=== PATIENT | male | born 2000 | race Caucasian/White ===

== ENCOUNTER 2022-08-12 11:51 | Emergency (ER) | payer SELFPAY ==
[2022-08-12 12:03] VITALS: BP 133/68; PULSE 86; RESP 16; TEMP 37.1; O2SAT 100
--- NOTE | 2022-08-12 12:21 | ED.URI ---
HPI - URI/Sore Throat General Chief Complaint: Upper Respiratory Infection Stated Complaint: Sore Throat Time Seen by Provider: 08/12/22 12:21 History of Present Illness HPI Narrative: 21 y/o male present with a scratchy sore throat and rhinorrhea worsening for 3 days. States his dad was diagnosed yesterday with strep throat. He has attempted throat lozenges with minimal relief. Denies difficulty swallowing secretions, otalgia, SOB, wheezing, CP, fevers, N/V/D. Related Data Home Medications Medication Instructions Recorded Confirmed Adderall 30 mg DAILY 08/12/22 08/12/22 Allergies Allergy/AdvReac Type Severity Reaction Status Date / Time No Known Allergies Allergy Verified 08/12/22 12:01 Review of Systems Review of Systems: CONSTITUTIONAL: Denies body aches EYES: Denies visual changes, redness, or discharge. ENT: Reports rhinorrhea, ST. Denies congestion, and otalgia. CARDIOVASCULAR: Denies chest pain, palpitations, or edema. RESPIRATORY: Denies dyspnea. MUSCULOSKELETAL: Denies back pain, joint pain, or myalgia. NEUROLOGIC: Denies headache [facility] Past Medical History Medical History Healthy male adult Social History Social History Smoking status: Never smoker Exam Narrative: GENERAL: well-appearing, no acute distress. EYES: conjunctivae clear ENT: Mucous membranes moist. TMs pearly robles with normal light reflex bilaterally; no tragal tenderness. Oropharynx erythematous without lesions. Tonsils 1+ and without exudate. No drooling, no hoarseness, no trismus, uvula midline. No tripod positioning, hot potato voice, or soft palate swelling. NECK: Supple. No lymphadenopathy CHEST: Clear to auscultation, breath sounds equal. HEART: Regular rate and rhythm. No murmur heard. SKIN: Warm, dry, no rash. Course Course Emergency Course: Patient is aware of diagnosis, understands and agrees to treatment plan. Anticipatory guidance given. Patient agrees to follow-up as directed and is aware of reasons to seek care at the emergency department. Portions of this record may have been created with voice recognition software Level of Care: Express Care Visit Vital Signs Vital signs: Vital Signs Temperature 98.7 F 08/12/22 12:03 Pulse Rate 86 08/12/22 12:03 Respiratory Rate 16 08/12/22 12:03 Blood Pressure 133/68 08/12/22 12:03 Pulse Oximetry 100 08/12/22 12:03 Oxygen Delivery Room Air 08/12/22 12:03 Temperature 98.7 F 08/12/22 12:03 Pulse Rate 86 08/12/22 12:03 Respiratory Rate 16 08/12/22 12:03 Blood Pressure 133/68 08/12/22 12:03 Pulse Oximetry 100 08/12/22 12:03 Oxygen Delivery Room Air 08/12/22 12:03 MDM - URI/Sore Throat MDM Narrative Medical decision making narrative: Will treat with abx d/t recent exposure and PE. He will forego the strep test at this time. Advised supportive treatments. Patient is appropriate for outpatient treatment and follow-up. Discussed s/s to report to ED. Differential Diagnosis Differential diagnosis: Likely upper respiratory infection, viral infection and pharyngitis Discharge Plan Discharge Clinical Impression: Pharyngitis Patient Disposition: Home, Self-Care Condition: Stable Instructions: Antibiotic Form, Strep Throat (ED) Additional Instructions: - Take the antibiotic as directed. Fever and sore throat typically resolve within one to three days. Most patients can return to work after 24 hours of antibiotic therapy, provided you are fever free and otherwise well. -Eat and drink things that are easy to swallow, like soft foods, cool liquids, tea with honey, or popsicles . -Salt water gargles and/or may use topical anesthetic ( Chloraseptic spray) or lozenges to relieve dryness or throat pain -Alternate Tylenol and ibuprofen as needed for pain and fever as directed. -Frequent hand washing o
== END 2022-08-12 12:36 | disposition home or self-care (01) ==
PROVIDERS: Emergency Provider Nurse Practitioner Family; PCP Emergency Medicine
DX: J02.9 Acute pharyngitis, unspecified (principal)
CPT/HCPCS: 99213; G0463

== ENCOUNTER 2022-09-18 09:13 | Emergency (ER) | payer OTHER, SELFPAY ==
[2022-09-18 09:21] VITALS: BP 130/76; PULSE 90; RESP 18; TEMP 36.6; O2SAT 99
--- NOTE | 2022-09-18 09:32 | ED.EYEPROB ---
HPI - Eye Problem General Chief complaint: Eye Problems Stated complaint: poss pink eye Time Seen by Provider: 09/18/22 10:10 Source: patient and RN notes reviewed Mode of arrival: ambulatory Limitations: no limitations History of Present Illness HPI Narrative: 21-year-old male presents concern for 2 day history of right eye irritation, redness, discharge, matting. Reports he woke up this morning with green crusty drainage on Wednesday. He reports he has had sinus symptoms for about 5 days and he has been taking [id number] sinus medication. He denies sinus pain or pressure. chief complaint: eye redness Related Data Home Medications Medication Instructions Recorded Confirmed dextroamphetamine-amphetamine 20 20 mg PO DAILY 09/18/22 09/18/22 mg tablet Allergies Allergy/AdvReac Type Severity Reaction Status Date / Time No Known Allergies Allergy Verified 09/18/22 09:35 Review of Systems Review of Systems: CONSTITUTIONAL: Denies malaise, chills, sweats, or fever. EYES: Denies visual changes. Reports right eye redness, irritation, discharge. ENT: Denies rhinorrhea, congestion, sinus pain, otalgia or sore throat. SKIN: Denies rash or itching. NEUROLOGIC: Denies numbness, weakness, or headache. PSYCHIATRIC: Denies anxiety or depression. All systems reviewed & are unremarkable except as noted in HPI and below PMFSH Past Medical History Medical History Healthy male adult Social History Social History Smoking status: Never smoker Comments At time of signature, agree with nursing past medical, surgical, social and family history. There is no relevant family history pertinent to the presenting complaint Exam Narrative: GENERAL: Well-appearing, well-nourished, and in no acute distress. HEAD: Normocephalic, atraumatic. EYES: PERRLA, sclera clear, and EOMI. No nystagmus. Right eye Schooler and conjunctivae injected with green discharge. Upper and lower eyelid unremarkable, no periorbital edema noted ENT: Nares clear, turbinates pink, no rhinorrhea or epistaxis. Mucous membranes moist. TM pearly robles with sharp light reflex bilaterally; no tragal tenderness. NECK: Supple. CHEST: No respiratory distress. Speaks in full sentences. HEART: Regular rate and rhythm. SKIN: Warm, dry, no visible rash. NEURO: Alert and oriented x3. PSYCH: Normal mood and affect Course Course Emergency Course: Patient is aware of diagnosis, understands and agrees to treatment plan. Anticipatory guidance given. Patient agrees to follow-up as directed and is aware of reasons to seek care at the emergency department. Portions of this record may have been created with voice recognition software Level of Care: Express Care Visit Vital Signs Vital signs: Vital Signs Temperature 98 F 09/18/22 09:21 Pulse Rate 90 09/18/22 09:21 Respiratory Rate 18 09/18/22 09:21 Blood Pressure 130/76 09/18/22 09:21 Pulse Oximetry 99 09/18/22 09:21 Oxygen Delivery Room Air 09/18/22 09:21 Temperature 98 F 09/18/22 09:21 Pulse Rate 90 09/18/22 09:21 Respiratory Rate 18 09/18/22 09:21 Blood Pressure 130/76 09/18/22 09:21 Pulse Oximetry 99 09/18/22 09:21 Oxygen Delivery Room Air 09/18/22 09:21 Reviewed. MDM - Eye Problem MDM Narrative Medical decision making narrative: Consideration of the following conditions may be warranted for the presenting problem, they are not final diagnoses: Bacterial conjunctivitis, allergic conjunctivitis, viral conjunctivitis, foreign body, blepharitis, chalazion, hordeolum, corneal abrasion, preseptal cellulitis, orbital cellulitis. No evidence of proptosis, ophthalmoplegia, vision loss, pain with eye movement. Exam findings show no acute concerns or changes; patient is non-toxic appearing and is in no distress. Patient is appropriate for outpatient treatment an
== END 2022-09-18 10:10 | disposition home or self-care (01) ==
PROVIDERS: Emergency Provider Nurse Practitioner; PCP Emergency Medicine
DX: H10.9 Unspecified conjunctivitis (principal)
CPT/HCPCS: 99213; G0463

== ENCOUNTER 2022-09-20 11:46 | Emergency (ER) | payer OTHER, SELFPAY ==
[2022-09-20 11:53] VITALS: BP 141/62; PULSE 91; RESP 16; TEMP 36.9; O2SAT 99
--- NOTE | 2022-09-20 13:14 | ED.URI ---
HPI - URI/Sore Throat General Chief Complaint: Upper Respiratory Infection Stated Complaint: Sore Throat Time Seen by Provider: 09/20/22 13:15 Source: patient, RN notes reviewed and old records reviewed Mode of arrival: ambulatory Limitations: no limitations History of Present Illness HPI Narrative: 21 year old male who presents to [facility] care with complaints of cough, stuffy nose,no fevers and sore throat for the past 2 days. Patient denies any shortness of breath or any body aches, he rates his pain 6/10 and reports increase with swallowing. Ptient has not taken any OTC medication for his symptoms. MD elicited complaint: fever, sore throat, rhinorrhea and nasal congestion Pertinent past history: other (strep) Onset (ago): day(s) (2) Pain scale (0-10): 6 Treatments prior to arrival: none Related Data Home Medications Medication Instructions Recorded Confirmed dextroamphetamine-amphetamine 20 20 mg PO DAILY 09/18/22 09/18/22 mg tablet Allergies Allergy/AdvReac Type Severity Reaction Status Date / Time No Known Allergies Allergy Verified 09/18/22 09:35 Review of Systems Review of Systems: CONSTITUTIONAL:Reports malaise, chills, sweats, or fever. EYES: Denies visual changes, redness, or discharge. ENT: Reports rhinorrhea, congestion, sinus pain,no otalgia positive for sore throat. CARDIOVASCULAR: Denies chest pain, palpitations, or edema. RESPIRATORY: Reports cough.? Denies dyspnea. GASTROINTESTINAL: Denies abdominal pain, nausea, vomiting, diarrhea SKIN: Denies rash or itching. MUSCULOSKELETAL: Denies myalgia. NEUROLOGIC: Denies headache. All systems reviewed & are unremarkable except as noted in HPI and below PMFSH Past Medical History Medical History Healthy male adult Social History Social History Smoking status: Never smoker Comments At time of signature, agree with nursing past medical, surgical, social and family history. There is no relevant family history pertinent to the presenting complaint Exam Narrative: GENERAL: Well-appearing, well-nourished, and in no acute distress. HEAD: Normocephalic EYES: PERRLA, conjunctivae clear ENT: Nares clear, turbinates edematous and erythematous, clear discharge. Mucous membranes moist. TM pearly robles with dull light reflex bilaterally; no tragal tenderness. Oropharynx erythematous without lesions. Tonsils red and enlarged and with painful swallowing, no drooling, no hoarseness, no trismus, uvula midline.post nasal drainage NECK: Supple. lymphadenopathy CHEST: Clear to auscultation, breath sounds equal. No wheezing, rhonchi, rales, or stridor. No respiratory distress, speaks in full sentences.no acute cough SAO2 99% on room air HEART: Regular rate and rhythm. No murmur heard. SKIN: Warm, dry, no rash. NEURO: Alert and oriented x3. PSYCH: Normal mood and affect Course Course Emergency Course: Patient is aware of diagnosis, understands and agrees to treatment plan.? Anticipatory guidance given.? Patient agrees to follow-up as directed and is aware of reasons to seek care at the emergency department. Portions of this record may have been created with voice recognition software Level of Care: Express Care Visit Vital Signs Vital signs: Vital Signs Temperature 36.9 C 09/20/22 11:53 Pulse Rate 91 09/20/22 11:53 Respiratory Rate 16 09/20/22 11:53 Blood Pressure 141/62 H 09/20/22 11:53 Pulse Oximetry 99 09/20/22 11:53 Oxygen Delivery Room Air 09/20/22 11:53 Temperature 36.9 C 09/20/22 11:53 Pulse Rate 91 09/20/22 11:53 Respiratory Rate 16 09/20/22 11:53 Blood Pressure 141/62 H 09/20/22 11:53 Pulse Oximetry 99 09/20/22 11:53 Oxygen Delivery Room Air 09/20/22 11:53 Reviewed MDM - URI/Sore Throat MDM Narrative Medical decision making narrative: Differential diagnosi
== END 2022-09-20 13:35 | disposition home or self-care (01) ==
PROVIDERS: Emergency Provider Registered Nurse; PCP Emergency Medicine
DX: J02.0 Streptococcal pharyngitis (principal); Z20.822 Contact with and (suspected) exposure to COVID-19
CPT/HCPCS: 87426; 87804; 87880; 99213; C9803; G0463

== ENCOUNTER 2023-06-05 20:44 | Emergency (ER) | payer OTHER, SELFPAY ==
[2023-06-05] VITALS (10 sets, daily range): BP systolic 144; BP diastolic 82; PULSE 82–104; RESP 10–22; TEMP 36.9; O2SAT 98–100
--- NOTE | ~2023-06-05 | XR_ITS ---
EXAMINATION: XR chest 2V DATE: 06/05/2023 21:03 INDICATION: Chest tightness TECHNIQUE: PA and lateral views of the chest were obtained. COMPARISON: None FINDINGS: The lungs are clear with no focal airspace opacities, pulmonary edema, pleural effusion or pneumothor ax. The cardiomediastinal silhouette is normal. Visualized bones and soft tissues are unremarkable. IMPRESSION: 1. Normal chest radiograph. Reviewed, dictated and finalized at location A. IMPRESSION: 1. Normal chest radiograph.
--- NOTE | 2023-06-05 20:46 | ECG_ITS ---
Measurements Intervals [place] Rate: 85 P: 40 AK: 150 QRS: 16 QRSD: 109 T: 14 QT: 340 QTc: 404 Interpretive Statements SINUS RHYTHM WITH MARKED SINUS ARRHYTHMIA INCOMPLETE RIGHT BUNDLE BRANCH BLOCK [90+ ms QRS DURATION, TERMINAL R IN V1/V2, 40+ ms S IN I/aVL/V4/V5/V6] MINIMAL VOLTAGE CRITERIA FOR LVH, CONSIDER NORMAL VARIANT [MEETS CRITERIA IN ONE OF: R(aVL), S(V1), R(V5), R(V5/V6)+S(V1)] NO PREVIOUS ECG AVAILABLE FOR COMPARISON Electronically Signed On 06-06-2023 11:13:33 CDT by Delphine Oreilly MD
[2023-06-05 20:59] LABS: Basophils Percent Auto 0.4 % (0.2-1.2); Eosinophils Absolute Auto 0.1 K/mm3 (0-0.3); Eosinophils Percent Auto 0.9 % (0-4.4); Hematocrit 44.8 % (42.0-52.0); Immature Granulocyte Absolute 0.03 K/mm3 (0.00-0.031); Immature Granulocyte Percent A 0.3 % (0-0.5); Lymphocytes Absolute Auto 2.82 K/mm3 (0.9-3.2); Lymphocytes Percent Auto 26.8 % (18.3-44.2); Mean Corpuscular HGB Conc 33.5 g/dl (32-36); Mean Corpuscular Hemoglobin 29.8 pg (26-34); Mean Corpuscular Volume 89.1 fl (80-100); Mean Platelet Volume 8.8 fl (7.4-10.4); Monocytes Absolute Auto 0.7 K/mm3 (0.1-0.6); Monocytes Percent Auto 6.4 % (2.6-8.5); Neutrophils Absolute Auto 6.9 K/mm3 (1.3-6.7); Neutrophils Percent Auto 65.2 % (45.5-73.1); Platelet Count Result 323 k/mm3 (150-375); Red Blood Count 5.03 M/mm3 (4.6-6.20); Red Cell Distribution Width 12.1 % (11.5-14.5); White Blood Count 10.5 K/mm3 (4.5-10.0)
--- NOTE | 2023-06-05 21:00 | ED.GENADULT ---
HPI - General Adult General Chief complaint: Chest Pain Stated complaint: Chest Tighness Time Seen by Provider: 06/05/23 20:48 History of Present Illness HPI narrative: Patient with 2-year-old gentleman who presents the emergency department with chief complaint of chest discomfort. The patient reports that today he started having a feeling in his chest that was a tightness heaviness. Patient reports he did a little bit of discomfort in his left shoulder and left leg patient reports no diaphoresis reports that he was not doing any significant activity during this episode reports that he has no prior history of cardiac disease reports no family history for cardiac disease at a young age patient reports that has had no injury reports no fever denies cough Related Data Home Medications Medication Instructions Recorded Confirmed dextroamphetamine-amphetamine 20 20 mg PO DAILY 09/18/22 09/18/22 mg tablet Allergies Allergy/AdvReac Type Severity Reaction Status Date / Time No Known Allergies Allergy Verified 09/18/22 09:35 Review of Systems Review of Systems: A 10 system review of systems was completed on the patient and is negative except for what is stated in the HPI. Nursing and ancillary documentation was reviewed. [facility] Past Medical History Medical History Healthy male adult Social History Social History Smoking status: Never smoker Exam Narrative: GENERAL: Well-appearing, well-nourished, and in no acute distress. HEAD: Normocephalic, atraumatic. EYES: PERRLA and EOMI. ENT: Nares clear, no rhinorrhea or epistaxis. Mucous membranes moist. NECK: Supple. CHEST: Clear to auscultation. No respiratory distress. HEART: Regular rate and rhythm. No murmur heard. Normal peripheral pulses. ABDOMEN: Soft, nontender, nondistended, normal active bowel sounds. EXTREMITIES: Normal range of motion. No edema. SKIN: Warm, dry, no rash. NEURO: No focal deficits. Alert and oriented x3. PSYCH: Normal mood and affect. Course Vital Signs Vital signs: Vital Signs Temperature 36.9 C 06/05/23 20:47 Pulse Rate 91 06/05/23 20:47 Respiratory Rate 16 06/05/23 20:47 Pulse Oximetry 100 06/05/23 20:47 Oxygen Delivery Room Air 06/05/23 20:47 Temperature 36.9 C 06/05/23 20:47 Pulse Rate 95 06/05/23 20:55 Respiratory Rate 10 L 06/05/23 20:53 Blood Pressure 144/82 H 06/05/23 20:53 Pulse Oximetry 100 06/05/23 20:49 Oxygen Delivery Room Air 06/05/23 20:47 Medical Decision Making MDM Narrative Medical decision making narrative: Differential diagnosis includes ACS, atypical chest pain, anxiety, reflux, pancreatitis EKG showed no ST elevation or ST depression Patient no focal infiltrate or widened mediastinum or acute abnormality. Laboratory studies showed a white count of 10.5 electrolytes are within normal limits lipase was 43 liver enzymes were otherwise normal renal function was normal with creatinine 0.8 troponin is less than 0.012 Vital Signs Vital Signs: Vital Signs Temperature 36.9 C 06/05/23 20:47 Pulse Rate 91 06/05/23 20:47 Respiratory Rate 16 06/05/23 20:47 Pulse Oximetry 100 06/05/23 20:47 Oxygen Delivery Room Air 06/05/23 20:47 Temperature 36.9 C 06/05/23 20:47 Pulse Rate 95 06/05/23 20:55 Respiratory Rate 10 L 06/05/23 20:53 Blood Pressure 144/82 H 06/05/23 20:53 Pulse Oximetry 100 06/05/23 20:49 Oxygen Delivery Room Air 06/05/23 20:47 Lab Data 06/05/23 20:53 06/05/23 20:53 Labs: Lab Results 06/05/23 Range/Units 20:53 WBC 10.5 H (4.5-10.0) K/mm3 RBC 5.03 (4.6-6.20) M/mm3 Hgb 15.0 (14.0-18.0) g/dL Hct 44.8 (42.0-52.0) % MCV 89.1 (80-100) fl MCH 29.8 (26-34) pg MCHC 33.5 (32-36) g/dl RDW 12.1 (11.5-14.5) % Plt Count
[2023-06-05 21:07] LABS: Alanine Aminotransferase 33 U/L (6-50); Albumin Level 4.8 g/dL (3.5-5.1); Alkaline Phosphatase 58 U/L (38-126); Anion Gap 7 mmol/L (8-16); Aspartate Amino Transferase 34 U/L (17-59); Bilirubin,Total 0.5 mg/dL (0.2-1.3); Blood Urea Nitrogen 8 mg/dL (9-20); Calcium 9.2 mg/dL (8.4-10.2); Carbon Dioxide 29 mmol/L (22-30); Chloride 104 mmol/L (98-107); Estimated CRCL calculation 161 ml/min; Estimated Glomerular Filt Rate > 60; Glucose 99 mg/dL (65-110); Lipase 43 U/L (23-300); Potassium 3.7 mmol/L (3.4-5.0); Sodium 140 mmol/L (137-145)
[2023-06-05 21:10] LABS: Partial Thromboplastin Time 27.9 SECONDS (22.3-36.8); Prothrombin Time 13.6 Seconds (11.1-14.7)
[2023-06-05 21:18] LABS: Troponin I < 0.012 ng/mL (0.000-0.034)
== END 2023-06-05 22:16 | disposition home or self-care (01) ==
PROVIDERS: Emergency Provider Emergency Medicine; PCP Emergency Medicine
DX: R07.89 Other chest pain (principal)
CPT/HCPCS: 36415; 71046; 80053; 83690; 84484; 85025; 85610; 85730; 93005; 99284

== ENCOUNTER 2023-09-16 08:39 | Emergency (ER) | payer OTHER, SELFPAY ==
[2023-09-16 08:44] VITALS: BP 143/80; PULSE 99; RESP 20; TEMP 36.9; O2SAT 98
--- NOTE | 2023-09-16 08:44 | ED.NAVMDI ---
HPI - Nausea/Vomiting/Diarrhea General Chief complaint: Nausea/Vomiting/Diarrhea Stated complaint: stomach pain/diarrhea Source: patient and RN notes reviewed Mode of arrival: ambulatory Limitations: no limitations History of Present Illness HPI Narrative: Patient is a 22-year-old male who presents to the [facility] with complaints upper abdominal cramping that began on Wednesday. Patient describes the pain as intermittent and dull. States that pain occasionally becomes sharp. Patient states that he woke up this morning and noticed that his stool was liquid and black. He reports associated nausea without emesis. Denies recent fevers. Denies history of GI problems. Related Data Home Medications Medication Instructions Recorded Confirmed dextroamphetamine-amphetamine 20 20 mg PO DAILY 09/16/23 09/16/23 mg tablet (Adderall) Allergies Allergy/AdvReac Type Severity Reaction Status Date / Time No Known Allergies Allergy Verified 09/16/23 09:00 Review of Systems Review of Systems: CONSTITUTIONAL: Denies fever, chills, or sweats. EYES: Denies visual changes, redness, or discharge. ENT: Denies otalgia and sore throat CARDIOVASCULAR: Denies chest pain, palpitations, or edema. RESPIRATORY: Denies cough or dyspnea. GASTROINTESTINAL: Denies vomiting. Reports upper abdominal pain, nausea, diarrhea. Reports black stools. GENITOURINARY: Denies dysuria or hematuria. SKIN: Denies rash or itching. MUSCULOSKELETAL: Denies back pain, joint pain, or myalgia. NEUROLOGIC: Denies headache, numbness, or weakness. Pertinent positives per HPI. [facility] Past Medical History Medical History Healthy male adult Social History Social History Smoking status: Never smoker Comments At the time of my signature, I reviewed and agree with the nursing past medical, surgical, social, and family history. There is no relevant family history pertinent to the patient complaint. Exam Narrative: GENERAL: This is a well-nourished, well-developed patient, in no apparent distress. HEAD: normocephalic, atraumatic. EYES: Sclera clear/white. Vision is grossly intact. EARS: External ears normal. Hearing grossly intact. NOSE: External nose normal with no obvious nasal discharge, nares without redness, no rhinorrhea. THROAT: Mucous membranes moist, posterior pharynx clear. NECK: Neck supple, non-tender without lymphadenopathy, masses or thyromegaly. CARDIOVASCULAR: Regular rate and rhythm without murmurs, gallops, or rubs. RESPIRATORY: Clear to auscultation. Breath sounds equal bilaterally. No wheezes, rales, or rhonchi. GASTROINTESTINAL: Epigastric tenderness. Bowel sounds are active. No hepato-splenomegaly, or palpable masses. SKIN: warm, intact with no suspicious lesions or rash, good texture and turgor. NEURO: awake, alert, and oriented to person, place and time. There were no obvious focal neurologic abnormalities. Course Course Level of Care: Express Care Visit Vital Signs Vital signs: Vital Signs Temperature 98.5 F 09/16/23 08:44 Pulse Rate 99 09/16/23 08:44 Respiratory Rate 20 09/16/23 08:44 Blood Pressure 143/80 H 09/16/23 08:44 Pulse Oximetry 98 09/16/23 08:44 Oxygen Delivery Room Air 09/16/23 08:44 Temperature 98.5 F 09/16/23 08:44 Pulse Rate 99 09/16/23 08:44 Respiratory Rate 20 09/16/23 08:44 Blood Pressure 143/80 H 09/16/23 08:44 Pulse Oximetry 98 09/16/23 08:44 Oxygen Delivery Room Air 09/16/23 08:44 Reviewed Transfer Transfered to: [place] Transportation: Other ( Private vehicle) Transfer rationale: abdominal pain with black stools Accepting physician: Dr. Stack MDM - Nausea/Vomiting/Diarrhea [facility] Narrative Medical decision making narrative: Patient was sent to [facility] for further evaluation and treatment as he is experiencing abdominal
== END 2023-09-16 09:05 | disposition short-term general hospital (02) ==
PROVIDERS: Emergency Provider Nurse Practitioner; PCP Emergency Medicine
DX: R10.13 Epigastric pain (principal); K92.1 Melena; Z79.899 Other long term (current) drug therapy
CPT/HCPCS: 99212; G0463

== ENCOUNTER 2023-09-16 09:56 | Emergency (ER) | payer OTHER, SELFPAY ==
--- NOTE | ~2023-09-16 | CT_ITS ---
EXAMINATION: CT abdomen pelvis w con DATE: 09/16/2023 13:23 INDICATION: Upper abdominal pain TECHNIQUE: Computed tomography (CT) of the abdomen and pelvis was performed with 100 cc Omnipaque 350 intravenous contrast. The dose-length product was 1089.89 mGy-cm. Automated exposure control and ite rative reconstruction technique were employed. COMPARISON: No prior studies for comparison. FINDINGS: Lung bases are unremarkable. Heart size normal. No significant pleural or pericardial effus ion. The liver, spleen, pancreas, adrenal glands and kidneys are unremarkable. Gallbladder is present . There is mild mucosal thickening of the sigmoid colon with subtle hyperemia. No obstruction. The liver, spleen, pancreas, adrenal glands and kidneys are unremarkable. There is mild segmental thi ckening of the distal small bowel, also without obstruction. There is mild ileocolic and retroperiton eal lymphadenopathy. IMPRESSION: 1. Segmental thickening of the distal small bowel and the sigmoid colon/rectum, suspicious for infect ious or inflammatory enterocolitis. Consider Crohn's disease. 2: Mild ileocolic and retroperitoneal lymphadenopathy, likely reactive. Reviewed, dictated and finalized at location [facility] IMPRESSION: 1. Segmental thickening of the distal small bowel and the sigmoid colon/rectum, suspicious for infectious or inflammatory enterocolitis. Consider Crohn's dise ase. 2: Mild ileocolic and retroperitoneal lymphadenopathy, likely reactive.
[2023-09-16 10:41] VITALS: BP 147/76; PULSE 74; RESP 16; TEMP 36.8; O2SAT 100
--- NOTE | 2023-09-16 12:19 | ED.GENADULT ---
HPI - General Adult General Chief complaint: GI Bleed Stated complaint: Black stool, stomach cramping Time Seen by Provider: 09/16/23 12:18 Source: patient Mode of arrival: ambulatory Limitations: no limitations History of Present Illness HPI narrative: 22 years old white male came to the hospital by private car complaining of upper abdominal cramps started 2 days ago, intermittent, denies aggravating or relieving factor associated with nausea and vomited twice 2 days ago. He denies any fever, chills, diarrhea, no history of abdominal surgery, lives with asymptomatic family. He smokes cigarettes and marijuana drinks occasionally history of attention deficit syndrome on Adderall Related Data Home Medications Medication Instructions Recorded Confirmed dextroamphetamine-amphetamine 20 20 mg PO DAILY 09/16/23 09/16/23 mg tablet (Adderall) Allergies Allergy/AdvReac Type Severity Reaction Status Date / Time No Known Allergies Allergy Verified 09/16/23 09:00 Review of Systems Review of Systems: All systems reviewed & are unremarkable except as noted in HPI and below PMFSH Past Medical History Medical History Healthy male adult Social History Social History Smoking status: Never smoker Exam Narrative: General appearance: Well-developed, well-nourished Skin: Normal color Head: Normocephalic, nontraumatic Eyes: Clear conjunctiva ENT: Oropharynx normal, ears normal, nose normal Neck: Supple, nontender Chest and respiratory: Airway patent, no respiratory distress, no accessory muscle use Heart: Regular rate/rhythm Abdomen: Soft, epigastric tenderness, no organomegaly, quiet bowel sounds Vascular: Normal peripheral pulses, normal capillary refill. Musculoskeletal: Normal range of motion, nontender back Neurologic: Alert and oriented ?3, [employer] is normal as tested, no gross motor deficit Course Vital Signs Vital signs: Vital Signs Temperature 36.8 C 09/16/23 10:41 Pulse Rate 74 09/16/23 10:41 Respiratory Rate 16 09/16/23 10:41 Blood Pressure 147/76 H 09/16/23 10:41 Pulse Oximetry 100 09/16/23 10:41 Oxygen Delivery Room Air 09/16/23 10:41 Temperature 36.8 C 09/16/23 10:41 Pulse Rate 74 09/16/23 10:41 Respiratory Rate 16 09/16/23 10:41 Blood Pressure 147/76 H 09/16/23 10:41 Pulse Oximetry 100 09/16/23 10:41 Oxygen Delivery Room Air 09/16/23 10:41 Medical Decision Making MDM Narrative Medical decision making narrative: patient came from home with the above symptoms Vital signs on arrival within normal limit, physical examination showed mild tenderness at the epigastric area, differential diagnosis include pancreatitis, gastroenteritis, stress related symptoms he has, constipation, colitis Blood workup today showed normal CBC, CMP, lipase, urine analysis, in CT scan of the abdomen and pelvis with IV contrast showed possible Crohn's disease, enterocolitis. Patient be discharged on Levaquin, Flagyl, Zofran as needed discussed with Dr. Ceja. Patient was advised to contact Dr. Viramontes within 5-7 days for follow-up In the ED patient received 1 L of normal saline, 4 mg of morphine, 4 mg of Zofran with remarkable improvement. the pt was discharged to home.the pt,s condition upon discharge was fair,education was provided to the pt in reference to the final impression,discharge study results,treatment,prognosis and need for follow up . Differential Diagnosis Differential Diagnosis: as above Medical Records Medical records reviewed: Yes I reviewed the external patient's medi
[2023-09-16 12:30] VITALS: BP 126/70; PULSE 80; RESP 16; TEMP 36.7; O2SAT 100
[2023-09-16] MEDS: SODIUM CHLORIDE 0.9% IV 1,000 ML 999 ML IV CONT (12:33)
[2023-09-16] MEDS: MORPHINE SULFATE (*CRX) 4 MG/ML INJ IV PUSH (12:34)
[2023-09-16] MEDS: ONDANSETRON INJ 4 MG/2 ML VIAL IV PUSH (12:34)
[2023-09-16 12:44] LABS: Basophils Percent Auto 0.3 % (0.2-1.2); Eosinophils Absolute Auto 0.1 K/mm3 (0-0.3); Eosinophils Percent Auto 0.8 % (0-4.4); Hematocrit 44.5 % (42.0-52.0); Immature Granulocyte Absolute 0.02 K/mm3 (0.00-0.031); Immature Granulocyte Percent A 0.3 % (0-0.5); Lymphocytes Absolute Auto 1.16 K/mm3 (0.9-3.2); Lymphocytes Percent Auto 16.2 % (18.3-44.2); Mean Corpuscular HGB Conc 33.7 g/dl (32-36); Mean Corpuscular Hemoglobin 29.2 pg (26-34); Mean Corpuscular Volume 86.7 fl (80-100); Mean Platelet Volume 8.4 fl (7.4-10.4); Monocytes Absolute Auto 0.6 K/mm3 (0.1-0.6); Monocytes Percent Auto 8.7 % (2.6-8.5); Neutrophils Absolute Auto 5.3 K/mm3 (1.3-6.7); Neutrophils Percent Auto 73.7 % (45.5-73.1); Platelet Count Result 278 k/mm3 (150-375); Red Blood Count 5.13 M/mm3 (4.6-6.20); Red Cell Distribution Width 12.4 % (11.5-14.5); White Blood Count 7.2 K/mm3 (4.5-10.0)
[2023-09-16 12:47] LABS: Appearance Urine Clear (Clear); Bilirubin Urine Negative (Negative); Blood Urine Negative (Negative); Color Urine Yellow (Yellow); Glucose Urine UA Negative (Negative); Ketones Urine Negative (Negative); Leukocyte Esterase Ur Negative LEU/UL (Negative); Nitrate Urine Negative (Negative); Protein Urine Negative (Negative); Specific Grav Ur 1.023 (1.001-1.035); Urobilinogen Urine 0.2 mg/dL (<2.0)
[2023-09-16 12:48] LABS: Add Urine Microscopic? NO
[2023-09-16 12:54] LABS: Prothrombin Time 13.7 Seconds (11.1-14.7)
[2023-09-16 12:55] LABS: Alanine Aminotransferase 37 U/L (6-50); Albumin Level 4.9 g/dL (3.5-5.1); Alkaline Phosphatase 64 U/L (38-126); Anion Gap 11 mmol/L (8-16); Aspartate Amino Transferase 32 U/L (17-59); Bilirubin,Total 0.7 mg/dL (0.2-1.3); Blood Urea Nitrogen 13 mg/dL (9-20); Calcium 9.3 mg/dL (8.4-10.2); Carbon Dioxide 25 mmol/L (22-30); Chloride 102 mmol/L (98-107); Estimated CRCL calculation 179 ml/min; Estimated Glomerular Filt Rate > 60; Glucose 91 mg/dL (65-110); Lipase 32 U/L (23-300); Partial Thromboplastin Time 31.2 SECONDS (22.3-36.8); Potassium 4.1 mmol/L (3.4-5.0); Sodium 138 mmol/L (137-145)
[2023-09-16 13:21] LABS: SARS-CoV-2 RNA PCR Negative (Negative)
[2023-09-16 13:30] VITALS: BP 120/74; PULSE 78; RESP 16; O2SAT 98
[2023-09-16 14:30] VITALS: BP 118/68; PULSE 74; RESP 16; TEMP 36.7; O2SAT 99
== END 2023-09-16 15:30 | disposition home or self-care (01) ==
PROVIDERS: Emergency Provider Emergency Medicine; PCP Emergency Medicine
DX: K52.9 Noninfective gastroenteritis and colitis, unspecified (principal); Z20.822 Contact with and (suspected) exposure to COVID-19; F98.8 Other specified behavioral and emotional disorders with onset usually occurring in childhood and adolescence; F17.210 Nicotine dependence, cigarettes, uncomplicated
CPT/HCPCS: 36415; 74177; 80053; 81003; 83690; 85025; 85610; 85730; 86850; 86900; 86901; 87635; 96361; 96374; 96375; 99284; J2270; J2405; J7030; Q9967

== ENCOUNTER 2023-10-28 00:47 | Day surgery (SDC) | payer OTHER, SELFPAY ==
[2023-10-13 10:01] VITALS: BMI 32.5
--- NOTE | 2023-10-26 09:39 | SUR.PREOP ---
Patient called regarding upcoming procedure. Message left on pt's voicemail regarding appointment times.
[2023-10-28 09:54] VITALS: BP 132/75; PULSE 79; RESP 16; TEMP 37.1; O2SAT 100
[2023-10-28] MEDS: LACTATED RINGERS 1,000 ML 150 ML IV CONT (10:03)
--- NOTE | 2023-10-28 10:12 | PM.HPGS ---
History of Present Illness History of Present Illness Consent: Risks, benefits, and alternatives have been discussed and questions answered. Patient agrees to proceed with procedure. Chief complaint: abnormal findings on imaging,abdom.pain,diarrhea Narrative: Tonny Rojas Jr. is a 22 year old male here for first colonoscopy, last month had episode of abdominal pain and diarrhea for which came to ER, then had CT A/P was obtained which showed?Segmental thickening of the distal small bowel and the sigmoid colon/rectum, suspicious for infectious or inflammatory enterocolitis. Consider Crohn's disease.?CBC/CMP/lipase wnls.?He is asymptomatic now Review of Systems Constitutional: Constitutional: Denies headache(s) and Denies weakness Eyes: Eyes: Denies blurry vision ENT: Reports Normal hearing present, Denies headache(s) and Denies neck pain Cardiovascular: Cardiovascular: Denies chest pain and Denies dyspnea Respiratory: Respiratory: Denies dyspnea Gastrointestinal: Gastrointestinal: Reports no additional gastrointestinal complaints Genitourinary: Genitourinary: Denies dysuria Musculoskeletal: Musculoskeletal: Denies neck pain Integumentary/Breasts: Skin/Breast: Denies dry skin Neurologic: Reports Normal hearing present, Denies headache(s) and Denies weakness Psychiatric: Psychiatric: Denies anxiety Endocrine: Endocrine: Denies change in body appearance Hematologic/Lymphatic: Hematologic/Lymphatic: Denies easy bleeding Allergic/Immunologic: Allergic/Immunologic: Denies urticaria PMFSH Past Medical History Medical History (Updated 10/28/23 @ 10:13 by Jas Bonner MD) Abnormal CT scan, colon Healthy male adult Social History Social History Smoking status: Current some day smoker Alcohol intake: current Alcohol use details: Socially Substance use: current Substance use type: marijuana Other substance usage details: Smokes/uses edibles occasionally Living arrangements: with family Meds Home Medications and Allergies Home Medications Medication Instructions Recorded Confirmed Type dextroamphetamine-amphetamine 20 20 mg PO DAILY 09/16/23 10/28/23 History mg tablet (Adderall) Allergies Allergy/AdvReac Type Severity Reaction Status Date / Time No Known Allergies Allergy Verified 10/28/23 09:52 Vital Signs Vital Signs - 24 hr 10/28/23 09:54 Temperature 98.7 F Pulse Rate 79 Respiratory Rate 16 Blood Pressure 132/75 Pulse Oximetry 100 Oxygen Delivery Room Air Exam Const: General: comfortable and no acute distress HENMT: Face/Nose/Sinus: Normal nares present Eyes: General: appearance normal, both eyes and all related structures Neck: Neck: no JVD Resp: Auscultation: clear to auscultation bilaterally Cardio: Rate: regular rate Rhythm: regular rhythm GI: Inspection: non-distended GI Palp: Yes Soft to palpation Skin: General skin exam: normal color Neuro: General: gait normal Speech: normal speech Extrem: General: normal to inspection Psych: Mental Status: mental status grossly normal Assessment and Plan Assessment and plan (1) Abnormal CT scan, colon: Code(s): R93.3 - Abnormal findings on diagnostic imaging of other parts of digestive tract Status: Acute Assessment and Plan: asymptomatic now but will investigate with colonoscopy
--- NOTE | 2023-10-28 10:13 | P.PNAN_ITS ---
Anes - Initial Pre Proc Eval Procedure: Operation Date: 10/28/23 11:00 Proposed Procedures p Colonoscopy - Jas Bonner MD Date/Time: 10/28/23 10:13 Surgeon: Jas Bonner MD Pre Op Diagnosis: abnormal findings on imaging,abdom.pain,diarrhea Patient Data Age: 22 Gender: M Height: 1.83 m Weight: 108.2 kg Last Vital Signs Temp 98.7 F 10/28/23 09:54 Pulse 79 10/28/23 09:54 Resp 16 10/28/23 09:54 BP 132/75 10/28/23 09:54 Pulse Ox 100 10/28/23 09:54 O2 Del Method Room Air 10/28/23 09:54 Allergies Allergy/AdvReac Type Severity Reaction Status Date / Time No Known Allergies Allergy Verified 10/28/23 09:52 Home Medications Medication Instructions Recorded Confirmed Type dextroamphetamine-amphetamine 20 20 mg PO DAILY 09/16/23 10/28/23 History mg tablet (Adderall) Patient hx anesthesia problems: none Family hx anesthesia problems: none Results Review: All pre-operative results and documents have been reviewed as part of the pre- operative evaluation. [facility] Past Medical History Medical History Healthy male adult Social History Social History Smoking status: Current some day smoker Alcohol intake: current Alcohol use details: Socially Substance use: current Substance use type: marijuana Other substance usage details: Smokes/uses edibles occasionally Living arrangements: with family Anes - Eval Final PreProcedure Day of Procedure 10/28/23 10:13 Patient weight: obese Heart: regular rate and rhythm Lungs: clear to auscultation Airway: Mallampati scale class II Neurological: alert and oriented Last oral intake: >/= 8 hours ASA classification: II Emergent: no Anesthetic plan: proceed Anesthesia type and monitoring: general GIVS and standard monitoring Results Review: All pre-operative results and documents have been reviewed as part of the pre- operative evaluation. Informed Consent: The patient's anesthetic plan and its attendant risks and benefits were discussed with the patient/family/POA. Questions were solicited and answers provided to the satisfaction of the patient/family/POA.
[2023-10-28 10:29] VITALS: BP 110/61; PULSE 83; RESP 16; O2SAT 99
[2023-10-28 10:39] VITALS: BP 106/64; PULSE 75; RESP 15; O2SAT 98
[2023-10-28 10:49] VITALS: BP 116/63; PULSE 78; RESP 14; O2SAT 100
== END 2023-10-28 11:00 | disposition home or self-care (01) ==
PROVIDERS: PCP Emergency Medicine; Visit Provider Internal Medicine Gastroenterology
PROC: 0DJD8ZZ Inspection of Lower Intestinal Tract, Via Natural or Artificial Opening Endoscopic (ICD-10-PCS; CPT 45378; principal; 2023-10-28 11:00)
DX: R93.3 Abnormal findings on diagnostic imaging of other parts of digestive tract (principal); R10.9 Unspecified abdominal pain; R19.7 Diarrhea, unspecified
CPT/HCPCS: 45378; J2704; J7120

== ENCOUNTER 2023-12-07 08:54 | Emergency (ER) | payer OTHER, SELFPAY ==
[2023-12-07 08:59] VITALS: BP 143/72; PULSE 76; RESP 16; TEMP 36.8; O2SAT 100
[2023-12-07 09:11] VITALS: BP 143/72; PULSE 76; RESP 16; TEMP 36.4; O2SAT 100
--- NOTE | 2023-12-07 09:23 | ED.GENADULT ---
HPI - General Adult General Chief complaint: Nausea/Vomiting/Diarrhea Stated complaint: stomach issues Source: patient Mode of arrival: ambulatory Limitations: no limitations History of Present Illness HPI narrative: Patient presents requesting a note to allow to return to work. On Wednesday he consume some fish. The day after he developed nausea, vomiting and diarrhea. He did not experience any fever, chills abdominal pain, blood/mucous in the stool. He missed work and is requesting a note to allow him to return to work. His nausea, vomiting and diarrhea are markedly improved and he would like to return to work. Another individual who consumed the fish also developed similar symptoms. He had a colitis in the past and was managed outpatient with oral abx. He had a follow up coloscopy to ensure he did not have IBD. There was no evidence of such on the study. He states his current symptoms are not consistent the symptoms he experienced with colitis. Related Data Allergies Allergy/AdvReac Type Severity Reaction Status Date / Time No Known Allergies Allergy Verified 10/28/23 09:52 Review of Systems Review of Systems: CONSTITUTIONAL: Denies fever, chills, or sweats. EYES: Denies visual changes, redness, or discharge. ENT: Denies rhinorrhea, congestion, sore throat, or otalgia. CARDIOVASCULAR: Denies chest pain, palpitations, or edema. RESPIRATORY: Denies cough or dyspnea. GASTROINTESTINAL: Reports recent nausea, vomiting, diarrhea, now markedly improved GENITOURINARY: Denies dysuria or hematuria. SKIN: Denies rash or itching. MUSCULOSKELETAL: Denies back pain, joint pain, or myalgia. NEUROLOGIC: Denies headache, numbness, dizziness, or weakness. PSYCHIATRIC: Denies anxiety or depression. ON LICENSE OF [facility] Past Medical History Medical History Abnormal CT scan, colon Healthy male adult Surgical History Surgical History No pertinent past surgical history Family History Family History Mother Family history non-contributory Social History Social History Alcohol intake: current Alcohol use details: Socially Substance use: current Substance use type: marijuana Other substance usage details: Smokes/uses edibles occasionally Living arrangements: alone Gender identity (if verbalized by the patient): Male Spiritual care concerns: No Exam Narrative: GENERAL: Well-appearing, well-nourished, and in no acute distress. HEAD: Normocephalic, atraumatic. EYES: PERRLA and EOMI. ENT: Nares clear, no rhinorrhea or epistaxis. Mucous membranes moist. Oropharynx without tonsillar hypertrophy exudate or other lesions. Bilateral TMs pearly robles nonbulging NECK: Supple. No adenopathy or masses. No carotid bruits or JVD CHEST: Clear to auscultation. No respiratory distress. No wheezes rales or rhonchi HEART: Regular rate and rhythm. No murmur heard. Normal peripheral pulses. ABDOMEN: Soft, nontender, nondistended, normal active bowel sounds. EXTREMITIES: Normal range of motion. No edema. SKIN: Warm, dry, no rash. NEURO: No focal deficits. Alert and oriented x3. PSYCH: Normal mood and affect. Course Course Emergency Course: Patient is a 22-year-old male who presented for evaluation of recent nausea, vomiting, diarrhea, now markedly improved. He has no abdominal pain, blood or mucus in the stool to suggest colitis. In fact his symptoms have almost resolved. Letter provided to allow him to return to work If he has symptom recurrence or develops any abdominal pain or blood/mucous in the stool, he should go to the ER. Patient in agreement with plan of care. Level of Care: Express Care Visit Vital Signs Vital signs: Vital Signs Temperature 36.8 C 12/07/23 08:59 Pulse Rate
== END 2023-12-07 09:41 | disposition home or self-care (01) ==
PROVIDERS: Emergency Provider Nurse Practitioner; PCP Emergency Medicine
DX: R11.2 Nausea with vomiting, unspecified (principal); R19.7 Diarrhea, unspecified; F12.90 Cannabis use, unspecified, uncomplicated
CPT/HCPCS: 99211; G0463

== ENCOUNTER 2024-08-05 13:18 | Emergency (ER) | payer OTHER, SELFPAY ==
[2024-08-05 13:24] VITALS: BP 130/78; PULSE 81; RESP 16; TEMP 36.7; O2SAT 98
--- NOTE | 2024-08-05 14:19 | ED_ITS ---
HPI - URI/Sore Throat General Chief Complaint: Upper Respiratory Infection Stated Complaint: Cough Time Seen by Provider: 08/05/24 14:10 Source: patient, RN notes reviewed and old records reviewed Mode of arrival: ambulatory Limitations: no limitations History of Present Illness HPI Narrative: 23 year old male who presents to [facility] care with complaints of 3 day history of productive cough with expectoration of yellow phlegm, sore throat, nasal drainage with no fevers noted. Patient is requesting work note since he called off work due to illness. Patient reports that he has been taking cold and flu medication and using throat lozenges. MD elicited complaint: cough and sore throat Onset (ago): day(s) (3) Consistency: constant Severity: moderate Able to tolerate fluids by mouth: Yes Treatments prior to arrival: other (cold and flu medication throat lozenges) Related Data Home Medications Medication Instructions Recorded Confirmed cetirizine 10 mg tablet mg 08/05/24 dextroamphetamine-amphetamine 20 08/05/24 mg tablet Allergies Allergy/AdvReac Type Severity Reaction Status Date / Time No Known Allergies Allergy Verified 08/05/24 13:37 Review of Systems Review of Systems: CONSTITUTIONAL: Denies malaise, chills, sweats, or fever. EYES: Denies visual changes, redness, or discharge. ENT: Reports rhinorrhea, congestion, sinus pain, no otalgia and positive for sore throat. CARDIOVASCULAR: Denies chest pain, palpitations, or edema. RESPIRATORY: Reports cough.? Denies dyspnea. GASTROINTESTINAL: Denies abdominal pain, nausea, vomiting, diarrhea SKIN: Denies rash or itching. MUSCULOSKELETAL: Denies myalgia. NEUROLOGIC: Denies headache. All systems reviewed & are unremarkable except as noted in HPI and below PMFSH Past Medical History Medical History (Updated 08/06/24 @ 20:15 by Jonna Yi NP) Abnormal CT scan, colon ADHD (attention deficit hyperactivity disorder) Colitis Healthy male adult Surgical History Surgical History No pertinent past surgical history Family History Family History Mother Family history non-contributory Social History Social History (Updated 08/06/24 @ 20:18 by Jonna Yi NP) Smoking status: Never smoker Alcohol intake: current Alcohol use details: Socially Substance use: current Substance use type: marijuana Other substance usage details: Smokes/uses edibles occasionally Living arrangements: alone Gender identity (if verbalized by the patient): Male Spiritual care concerns: No Comments At time of signature, agree with nursing past medical, surgical, social and family history. There is no relevant family history pertinent to the presenting complaint Exam Narrative: GENERAL: Well-appearing, well-nourished, and in no acute distress. HEAD: Normocephalic EYES: PERRLA, conjunctivae clear ENT: Nares clear, turbinates edematous and erythematous, clear discharge. Mucous membranes moist. TM pearly robles with dull light reflex bilaterally; no tragal tenderness. Oropharynx erythematous without lesions. Tonsils red and enlarged and without exudate, no drooling, no hoarseness, no trismus, uvula midline.some post nasal drainage NECK: Supple. lymphadenopathy CHEST: Clear to auscultation, breath sounds equal. No wheezing, rhonchi, rales, or stridor. No respiratory distress, speaks in full sentences.productive cough,SAO2 98% on room air HEART: Regular rate and rhythm. No murmur heard. SKIN: Warm, dry, no rash. NEURO: Alert and oriented x3. PSYCH: Normal mood and affect Course Course Emergency Course: Patient is aware of diagnosis, understands and agrees to treatment plan.? Anticipatory guidance given.? Patient agrees to follow-up as directed and is aware of reasons to seek care at the emergency department. Portions of this record may have been created with voice recognition software Level of Care: Express Care Visit Vital Signs Vital signs: Vital Signs Temperature 36.7 C 08/05/24 13:24 Pulse Rate 81 08/05/24 13:24 Respiratory Rate 16 08/05/24 13:24 Blood Pressure 130/78 08/05/24 13:24 Pulse Oximetry 98 08/05/24 13:24 Oxygen Delivery Room Air 08/05/24 13:24 Temperature 36.7 C 08/05/24 13:24 Pulse Rate 81 08/05/24 13:24 Respiratory Rate 16 08/05/24 13:24 Blood Pressure 130/78 08/05/24 13:24 Pulse Oximetry 98 08/05/24 13:24 Oxygen Delivery Room Air 08/05/24 13:24 Reviewed MDM - URI/Sore Throat MDM Narrative Medical decision making narrative: Differential diagnosis considered: Ann virus, strep pharyngitis, allergic rhinitis, upper respiratory tract infection, sinusitis, rhinosinusitis, nasopharyngitis. viral pharyngitis, otitis media, otitis externa, pneumonia, bronchitis, viral cough syndrome, viral syndrome, and influenza.? Exam findings show no acute concerns or changes; patient is non-toxic appearing and is in no distress.? Patient is appropriate for outpatient treatment and follow-up. Differential Diagnosis Differential diagnosis: Likely upper respiratory infection, sinusitis, viral infection, pharyngitis and other (strep pharyngitis, cough) Lab Data Attestation: I reviewed the patient's lab results. Lab results narrative: strep screen positive Labs: Lab Results 08/05/24 Range/Units 14:48 POC Grp A Strep Screen Positive (Negative) Critical Care Time Critical Care Time Critical Care Time: No Discharge Plan Discharge Clinical Impression: Acute streptococcal pharyngitis Patient Disposition: Home, Self-Care Condition: Stable Instructions: Antibiotic Form, Strep Throat (ED) Additional Instructions: You tested positive for Group A strep . Take the entire course of antibiotics. Throw away your current toothbrush and begin using a new toothbrush in 48 hours in order to prevent re-infection. Sanitize all reusable water bottles . Do not share items with others. Salt water gargles may alleviate some of the throat discomfort. You can take Tylenol or ibuprofen per the package instructions for pain/fever. Zyrtec Claritin or Laquita daily OTC cough syrup such as Robitussin or Delsym If your symptoms persist, change or worsen significantly before you can contact your personal physician then please, without delay, go to the emergency department for further evaluation. Follow-up with PCP in 7-10 days or sooner if needed Follow up with PCP soon in regards to your blood pressure which is elevated above threshold for referral. Blood pressure above 120/80 may indicate pre- hypertension. 130/78 Prescriptions: New amoxicillin 875 mg tablet 875 mg PO Q12H Qty: 20 0RF No Action cetirizine 10 mg tablet dextroamphetamine-amphetamine 20 mg tablet Follow-up/Referrals: Arsen Calderon MD [Primary Care Provider] - Stand Alone Forms: Work/School Release IP Time of Disposition: 14:42 Quality Sofy Coma Scale Eyes: Open Verbal: Oriented and Alert Motor: Follows Commands Sofy Coma Total Score: 15
[2024-08-05 14:50] LABS: EDSTREPNEGPOS1 Positive (Negative)
== END 2024-08-05 14:48 | disposition home or self-care (01) ==
PROVIDERS: Emergency Provider Registered Nurse; PCP Emergency Medicine
DX: J02.0 Streptococcal pharyngitis (principal)
CPT/HCPCS: 87880; 99213; G0463

== ENCOUNTER 2025-05-14 07:15 | Emergency (ER) | payer OTHER, SELFPAY ==
[2025-05-14] VITALS (10 sets, daily range): BP systolic 106–137; BP diastolic 65–73; PULSE 74–92; RESP 15–18; TEMP 37; O2SAT 99–100
--- NOTE | ~2025-05-14 | CT_ITS ---
EXAMINATION: CT abdomen pelvis w con DATE: 05/14/2025 08:46 INDICATION: Left upper quadrant abdominal pain TECHNIQUE: Computed tomography (CT) of the abdomen and pelvis was performed with 100 mL Omnipaque-350 intravenous contrast. Automated exposure control and iterative reconstruction technique were employe d. The dose-length product was 636.78 mGy-cm. COMPARISON: 09/16/2023 FINDINGS: Lung bases are clear. Heart size normal. No pericardial or pleural effusion. Liver, gallbladder, sple en, pancreas, bilateral adrenal glands and kidneys are normal. Bladder is normal. There is mild fatty infiltration of the wall of the terminal ileum without surrounding inflammatory change which can be seen as a chronic sequela of prior inflammation such as in the setting of Crohn's disease. No other a bnormal bowel wall thickening, surrounding inflammatory change or obstruction. Normal appendix. No fr ee intraperitoneal gas or fluid. Again seen are few mildly prominent but still normal-sized likely ch ronic reactive lymph nodes along the right ileocolic chain. No pathologically enlarged abdominal or p elvic lymphadenopathy. Mild lumbar and lower thoracic spondylosis. IMPRESSION: 1. Mild fatty infiltration of the wall of the terminal ileum raising suspicion for chronic sequela of Crohn's disease with stable appearance of mild likely chronic reactive ileocolic lymphadenopathy. No acute intra-abdominal/pelvic process. Reviewed, dictated and finalized at location A. IMPRESSION: 1. Mild fatty infiltration of the wall of the terminal ileum raising suspicion for chronic sequela of Crohn's disease with stable appearance of mild likely ch ronic reactive ileocolic lymphadenopathy. No acute intra-abdominal/pelvic proce ss.
--- OUTSIDE RECORDS SUMMARY | 2025-05-14 07:22 | XMS_ITS | Continuity of Care Document ---
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 Role Phone Arsen Calderon MD Unavailable Unavailable Allergies, Adverse Reactions, Alerts Substance Reaction Status Criticality No Known Allergies Active No Inform ation Medications Medication Instructions Dosage Effective Dates (start - stop) Status Comments Adderall 20 mg tablet take 1 tablet by o ral route every day before breakfast 20 MG - Active Procedures Procedure Date OFFICE/OUTPATIENT VISIT, EST OFFICE/OUTPATIENT VISIT, EST OFFICE/OUTPATIENT VISIT, EST OFFICE/OUTPATIENT VISIT, EST OFFICE/OUTPATIENT VISIT, EST OFFICE/OUTPATIENT VISIT, EST PREV VISIT, EST, AGE 18-39 OFFICE/OUTPATIENT VISIT, EST OFFICE/OUTPATIENT VISIT, EST OFFICE/OUTPATIENT VISIT, EST OFFICE/OUTPATIENT VISIT, EST OFFICE/OUTPATIENT VISIT, EST PREV VISIT, EST, AGE 18-39 OFFICE/OUTPATIENT VISIT, EST OFFICE/OUTPATIENT VISIT, EST OFFICE/OUTPATIENT VISIT, EST OFFICE/OUTPATIENT VISIT, EST OFFICE/OUTPATIENT VISIT, EST OFFICE/OUTPATIENT VISIT, EST PREV VISIT, EST, AGE 18-39 OFFICE/OUTPATIENT VISIT, EST Feb-04-2021 OFFICE/OUTPATIENT VISIT, EST OFFICE/OUTPATIENT VISIT, EST OFFICE/OUTPATIENT VISIT, EST OFFICE/OUTPATIENT VISIT, EST PREV VISIT, NEW, AGE 18-39 Advance Directives Directive Yes / No Effective Date File Name No Information Encounters Encounter Description Practice Location Reason(s) For Visit Diagnoses Date Provider Providers Copied on Encounter OFFICE/OUTPA TIENT VISIT, [facility], [address], [place], [place], [id number], [place] tel:[phone] [facility] [place] ADD (chief complaint) Attention deficit 5 Kvng Leger. [address], [place], [place], [address] , [place]. tel:[phone] OFFICE/OUTPA TIENT VISIT, [facility], [address], [place], [place], [address], [place] tel:[phone] [facility] [place] ADD (chief complaint) Attention deficit 5 Kvng Leger. [address], [place], [place], [address] , [place]. tel:[phone] OFFICE/OUTPA TIENT VISIT, [facility], [address], [place], [place], [address], [place] tel:[phone] [facility] [place] ADD (chief complaint) allergy1 (chief complaint) Attention deficitAllergic rhinitis due to pollen 5 Kvng Leger. [address], [place], [place], [address] , [place]. tel:[phone] OFFICE/OUTPA TIENT VISIT, [facility], [address], [place], [place], [address], [place] tel:[phone] [facility] [place] ADD (chief complaint) Attention deficit 5 Kvng Arsen. [address], [place], [place], [address] , [place]. tel:[phone] OFFICE/OUTPA TIENT VISIT, [facility], [address], [place], [place], [address], [place] tel:[phone] [facility] [place] ADD (chief complaint) Attention deficit 5 Calderon Arsen. [address], [place], [place], [address] , [place]. tel:[phone] OFFICE/OUTPA TIENT VISIT, EST [facility] [place], [address], [place], [place], [address], [place] tel:[phone] [facility] [place] ADD (chief complaint) Attention deficit Sep- 4 Calderon Arsen. [address], [place], [place], [address] , [place]. tel:[phone] PREV VISIT, EST, AGE 18-39 [facility] [place], [address], [place], [place], [address], [place] tel:[phone] [facility] [place] physical (chief complaint) Encntr for general adult medical exam w/o abnormal findings 4 Calderon Arsen. [address], [place], [place], [address] , [place]. tel:[phone] OFFICE/OUTPA TIENT VISIT, EST [facility] [place], [address], [place], [place], [address], [place] tel:[phone] [facility] [place] ADD (chief complaint) sinus allergy1 (chief complaint) Allergic rhinitis due to pollenAttention deficit 4 Kvng Arsen. [address], [place], [place], [address] , [place]. tel:[phone] OFFICE/OUTPA TIENT VISIT, [facility], [address], [place], [place], [address], [place] tel:[phone] [facility] [place] allergy1 (chief complaint) ADD (chief complaint) Allergic rhinitis due to pollenAttention deficit 4 Calderon Arsen. [address], [place], [place], [address] , [place]. tel:[phone] OFFICE/OUTPA TIENT VISIT, [facility], [address], [place], [place], [address], [place] tel:[phone] [facility] [place] ADD (chief complaint) Attention deficit 4 Kvng Leger. [address], [place], [place], [address] , [place]. tel:[phone] OFFICE/OUTPA TIENT VISIT, EST [facility] [place], [address], [place], [place], [address], [place] tel:[phone] [facility] [place] ADD (chief complaint) GI (chief complaint) protein1 (chief complaint) Attention deficitGastroenteri tisAbnormality of plasma protein, unspecifiedOther disorders of phosphorus metabolism 4 Kvng Leger. [address], [place], [place], [address] , [place]. tel:[phone] OFFICE/OUTPA TIENT VISIT, [facility], [address], [place], [place], [address], [place] tel:[phone] [facility] [place] ADD (chief complaint) Attention deficit 0 3 Kvng Leger. [address], [place], [place], [address] , [place]. tel:[phone] PREV VISIT, EST, AGE 18-39 [facility] [place], [address], [place], [place], [address], [place] tel:[phone] [facility] [place] physical (chief complaint) Encounter for general adult medical examination without abnormal findings 3 Kvng Leger. [address], [place], [place], [address] , [place]. tel: [phone] OFFICE/OUTPA TIENT VISIT, [facility], [address], [place], [place], [address], [place] tel:[phone] [facility] [place] ADD (chief complaint) Attention deficit 3 Kvng Moore [address], [place], [place], [address] , [place]. tel:[phone] OFFICE/OUTPA TIENT VISIT, [facility], [address], [place], [place], [address], [place] tel:[phone] [facility] [place] ADD (chief complaint) Attention deficit Reg-0 - 3 Calderon Arsen. [address], [place], [place], [address] , [place]. tel: [phone] OFFICE/OUTPA TIENT VISIT, [facility], [address], [place], [place], [address], [place] tel:[phone] [facility] [place] ADD (chief complaint) Attention deficit February-0 3 Calderon Arsen. [address], [place], [place], [address] , [place]. tel: [phone] OFFICE/OUTPA TIENT VISIT, [facility], [address], [place], [place], [address], [place] tel:[phone] [facility] [place] ADD (chief complaint) weight gain1 (chief complaint) Attention deficitAbnormal weight gain Sep-2 2 Calderon Arsen. [address], [place], [place], [address] , [place]. tel: [phone] OFFICE/OUTPA TIENT VISIT, [facility], [address], [place], [place], [address], [place] tel:[phone] [facility] [place] ADD (chief complaint) Attention deficit Jl- 2 Calderon Arsen. [address], [place], [place], [address] , [place]. tel: [phone] OFFICE/OUTPA TIENT VISIT, [facility], [address], [place], [place], [address], [place] tel:[phone] [facility] [place] ADD (chief complaint) Attention deficit Sep- 1 Kvng Arsen. [address], [place], [place], [address] , [place]. tel: [phone] PREV VISIT, EST, AGE 18-39 [facility] [place], [address], [place], [place], [address], [place] tel:[phone] [facility] Medicine physical (chief complaint) Encounter for general adult medical examination without abnormal findings 1 Kvng Moore [address], [place], [place], [address] , [place]. tel:[phone] OFFICE/OUTPA TIENT VISIT, [facility], [address], [place], [place], [address], [place] tel:[phone] [facility] [place] ADD (chief complaint) Attention deficit Nov-0 1 Kvng Moore [address], [place], [place], [address] , [place]. tel:[phone] OFFICE/OUTPA TIENT VISIT, [facility], [address], [place], [place], [address], [place] tel:[phone] [facility] [place] ADD (chief complaint) Attention deficit Jul- 0 Kvng [address], [place], [place], [address] , [place]. tel:[phone] OFFICE/OUTPA TIENT VISIT, [facility], [address], [place], [place], [address], [place] tel:[phone] [facility] [place] ADD1 (chief complaint) phosphorus 1 (chief complaint) Other disorders of phosphorus metabolismAttention deficit Apr- 0 Kvng [address], [place], [place], [address] , [place]. tel:[phone] OFFICE/OUTPA TIENT VISIT, [facility], [address], [place], [place], [address], [place] tel:[phone] [facility] [place] ADD (chief complaint) phos (chief complaint) Other disorders of phosphorus metabolismAttention deficit 0 Kvng Moore [address], [place], [place], [address] , [place]. tel:[phone] Referring Provider: Kristy Stack [address], [place], [place], [address]. tel:[phone] OFFICE/OUTPA TIENT VISIT, EST [facility] [place], [address], [place], [place], [address], tel:[phone] [facility] Medicine ADD (chief complaint) phosphorus (chief complaint) Other disorders of phosphorus metabolismAttention deficit 0 Kvng Leger. [address], [place], [place], [address] , [place]. tel:[phone] Referring Provider: [facility] [address] [place], [place], [address]. tel:[phone] PREV VISIT, NEW, AGE 18-39 [facility] [place], [address], [place], [place], [address], [place] tel:[phone] [facility] [place] physical (chief complaint) Encntr for general adult medical exam w/o abnormal findings 0 Kvng Leger. [address], [place], [place], [address] , [place]. tel:[phone] Referring Provider: Kristy Stack [address] [facility] [address], [place], [place], [address]. tel:[phone] Family History Family Member Type Diagnosis Age At Onset Father Problem (finding) ADD/ADHD Father Problem (finding) Depression Brother Problem (finding) Alive and well Mother Problem (finding) Alive and well Payers Payer name Insurance type Covered alliance party ID Óscar banks(s) [facility] CI [id number] Social History Type Description Quantity Date Captured Comments Alcohol Use Details No Caffeine Use Details Unknown Tobacco Use Status Current non-smoker Smoking Status Never smoker Sex Male Vital Signs Date / Time: Height Weight BMI Pulse Rate Blood Pressure Temperature Respiratory Rate Body Surface Area Head Circumference BMI percentile Pulse Ox Inhaled Ox 10:00 AM 72.00 in 218.80 lbs 29.6 7 kg/m eter (2) 86 /min 130/70 mm[Hg] 97.1 F 16 /min Chief Complaint And Reason For Visit From encounter dated '04/11/2025 09:57'. ADD (chief complaint). Description: Patient has ADD. Patient has inattentive type. Patient feels scatterbrained. Patient feel poor focus and difficulty completing tasks. Patient states that Adderall is helping with symptoms. Patient feels more focused. Pt feels more energy. Patient denies any headache, dry mouth, headache, chest pain. Patient denies any appetite loss. Plan Of Treatment Date Type Action Status Referral Ordered: Obdulio Camp -[facility] : Internal Medicine : Nephrology (related to Other disorders of phosphorus metabolism) ordered Referral Referred To: Obdulio Camp [id number] [place], [place], [id number] Ordered: Referrals: [facility] : Internal Medicine : Nephrology. Obdulio Camp. Evaluate and treat ordered History Of Present Illness Encounter Date Complaint History Of Prese nt Illness ADD Patient has ADD. Patient has inattentive type. Patient feels scatterbrained. Patient feel poor focus and difficulty completing tasks. Patient states that Adderall is helping with symptoms. Patient feels more focused. Pt feels more energy. Patient denies any headache, dry mouth, headache, chest pain. Patient denies any appetite loss. ADD Patient has ADD. Patient has inattentive type. Patient feels scatterbrained. Patient feel poor focus and difficulty completing tasks. Patient states that Adderall is helping with symptoms. Patient feels more focused. Pt feels more energy. Patient denies any headache, dry mouth, headache, chest pain. Patient denies any appetite loss. ADD Patient has ADD. Patient has inattentive type. Patient feels scatterbrained. Patient feel poor focus and difficulty completing tasks. Patient states that Adderall is helping with symptoms. Patient feels more focused. Pt feels more energy. Patient denies any headache, dry mouth, headache, chest pain. Patient denies any appetite loss. allergy1 Pt has allergic rhinitis and he has been taking OTC anti-histamines and doing ok pt is off zyrtec ADD Patient has ADD. Patient has inattentive type. Patient feels scatterbrained. Patient feel poor focus and difficulty completing tasks. Patient states that Adderall is helping with symptoms. Patient feels more focused. Pt feels more energy. Patient denies any headache, dry mouth, headache, chest pain. Patient denies any appetite loss. ADD Patient has ADD. Patient has inattentive type. Patient feels scatterbrained. Patient feel poor focus and difficulty completing tasks. Patient states that Adderall is helping with symptoms. Patient feels more focused. Pt feels more energy. Patient denies any headache, dry mouth, headache, chest pain. Patient denies any appetite loss. ADD Patient has ADD. Patient has inattentive type. Patient feels scatterbrained. Patient feel poor focus and difficulty completing tasks. Patient states that Adderall is helping with symptoms. Patient feels more focused. Pt feels more energy. Patient denies any headache, dry mouth, headache, chest pain. Patient denies any appetite loss. physical Pt needs annual physical. pt has ADD Pt doing well with adderall PRn Pt has seasonal allergy Pt doing ok with zyrtec. Pt overall feels well Pt denies any other complaints ADD Patient has ADD. Patient has inattentive type. Patient feels scatterbrained. Patient feel poor focus and difficulty completing tasks. Patient states that Adderall is helping with symptoms. Patient feels more focused. Pt feels more energy. Patient denies any headache, dry mouth, headache, chest pain. Patient denies any appetite loss. sinus allergy1 pt has seasonal allergy with sinus congestion Pt does not like flonase Pt wants zyrtec refilled ADD Patient has ADD. Patient has inattentive type. Patient feels scatterbrained. Patient feel poor focus and difficulty completing tasks. Patient states that Adderall is helping with symptoms. Patient feels more focused. Pt feels more energy. Patient denies any headache, dry mouth, headache, chest pain. Patient denies any appetite loss. allergy1 Pt has seasonal allergy with sneezing and postnasal drainage. Pt takes OTC anti-histamine but not work. Pt denies any sore throat or cough or fever ADD Patient has ADD. Patient has inattentive type. Patient feels scatterbrained. Patient feel poor focus and difficulty completing tasks. Patient states that Adderall is helping with symptoms. Patient feels more focused. Pt feels more energy. Patient denies any headache, dry mouth, headache, chest pain. Patient denies any appetite loss. GI Pt recently went to Er due to abd pain nausea, nonbloody diarrhea and CT showed segmental thickening of the small bowel and sigmoid colon suspicious for crohn disease Pt subsequently followed up with GI and he had a colonoscopy which was completely normal. Pt no longer has any abd pain or any nausea, vomiting, diarrhea Pt denies any blood in stool ADD Patient has ADD. Patient has inattentive type. Patient feels scatterbrained. Patient feel poor focus and difficulty completing tasks. Patient states that Adderall is helping with symptoms. Patient feels more focused. Pt feels more energy. Patient denies any headache, dry mouth, headache, chest pain. Patient denies any appetite loss. protein1 Pt had lab done while donating plasma which showed low total protein .He has not done repeat lab yet. his total protein recently at ER was again normal ADD Patient has ADD. Patient has inattentive type. Patient feels scatterbrained. Patient feel poor focus and difficulty completing tasks. Patient states that Adderall is helping with symptoms. Patient feels more focused. Pt feels more energy. Patient denies any headache, dry mouth, headache, chest pain. Patient denies any appetite loss. physical Pt needs annual physical Pt c/o acute onset of midsternal dull chest pain 5 days ago while sitting around and he denies any radiation of arm or neck. Pt denies any sob .pt denies any diaphoresis Pt denies any nausea, vomiting Pt went to ER and had negative troponin, lab, EKG and chest x ray and he was sent [facility] with atypical chest pain Pt denies any sob Pt states that he has not had any chest pain since .Pt has ADD pt doing ok with adderall . Pt donate plasma and he had two SPEF which showed low total protein around 5.8 and 5.7. He was told that he needs clearance before donating plasma. ADD Patient has ADD. Patient has inattentive type. Patient feels scatterbrained. Patient feel poor focus and difficulty completing tasks. Patient states that Adderall is helping with symptoms. Patient feels more focused. Pt feels more energy. Patient denies any headache, dry mouth, headache, chest pain. Patient denies any appetite loss. ADD Patient has ADD. Patient has inattentive type. Patient feels scatterbrained. Patient feel poor focus and difficulty completing tasks. Patient states that Adderall is helping with symptoms. Patient feels more focused. Pt feels more energy. Patient denies any headache, dry mouth, headache, chest pain. Patient denies any appetite loss. ADD Patient has ADD. Patient has inattentive type. Patient feels scatterbrained. Patient feel poor focus and difficulty completing tasks. Patient states that Adderall is helping with symptoms. Patient feels more focused. Pt feels more energy. Patient denies any headache, dry mouth, headache, chest pain. Patient denies any appetite loss. ADD Patient has ADD. Patient has inattentive type. Patient feels scatterbrained. Patient feel poor focus and difficulty completing tasks. Patient states that Adderall is helping with symptoms. Patient feels more focused. Pt feels more energy. Patient denies any headache, dry mouth, headache, chest pain. Patient denies any appetite loss. Pt has been off adderall for several months but he is not doing too well without adderall and he wants to restart weight gain1 Pt has been gain ing weight .Pt is not very active ADD Patient has ADD. Patient has inattentive type. Patient feels scatterbrained. Patient feel poor focus and difficulty completing tasks. Patient states that Adderall is helping with symptoms. Patient feels more focused. Pt feels more energy. Patient denies any headache, dry mouth, headache, chest pain. Patient denies any appetite loss. 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 Patient has inattentive type. Patient feels scatterbrained. Patient feel poor focus and difficulty completing tasks. Patient states that Adderall is helping with symptoms. Patient feels more focused. Pt feels more energy. Patient denies any headache, dry mouth, headache, chest pain. Patient denies any appetite loss. physical Pt needs annual physical .Patient has ADD. Patient has inattentive type. Patient feels scatterbrained. Patient feel poor focus and difficulty completing tasks. Patient states that Adderall is helping with symptoms. Patient feels more focused. Pt feels more energy. Patient denies any headache, dry mouth, headache, chest pain. Patient denies any appetite loss. Pt feels well Pt denies any other complaints ADD Patient has ADD. Patient has inattentive type. Patient feels scatterbrained. Patient feel poor focus and difficulty completing tasks. Patient states that Adderall is helping with symptoms. Patient feels more focused. Pt feels more energy. Patient denies any headache, dry mouth, headache, chest pain. Patient denies any appetite loss. ADD Patient has ADD. Patient has inattentive type. Patient feels scatterbrained. Patient feel poor focus and difficulty completing tasks. Patient states that Adderall is helping with symptoms. Patient feels more focused. Pt feels more energy. Patient denies any headache, dry mouth, headache, chest pain. Patient denies any appetite loss. phosphorus1 Pt has high phos phorus Pt has not heard from nephrology ADD1 Patient has ADD. Patient has inattentive type. Patient feels scatterbrained. Patient feel poor focus and difficulty completing tasks. Patient states that Adderall is helping with symptoms. Patient feels more focused. Pt feels more energy. Patient denies any headache, dry mouth, headache, chest pain. Patient denies any appetite loss. phos Pt has persisten tly high phosphorus Pt does not have any low D, PTH abnormality, muscle pain or liver disease ADD Patient has ADD. Patient has inattentive type. Patient feels scatterbrained. Patient feel poor focus and difficulty completing tasks. Patient states that Adderall is helping with symptoms. Patient feels more focused. Pt feels more energy. Patient denies any headache, dry mouth, headache, chest pain. Patient denies any appetite loss. phosphorus Pt has mildly hi gh phosphorus level. Pt denies any bone pain Pt denies any urinary symptoms. ADD Patient has ADD. Patient has inattentive type. Patient feels scatterbrained. Patient feel poor focus and difficulty completing tasks. Patient states that Adderall is helping with symptoms. Patient feels more focused. Pt feels more energy. Patient denies any headache, dry mouth, headache, chest pain. Patient denies any appetite loss. physical Pt needs annual physical. 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 Pt feels easily distracted, unable to focus and concentrate while at work for long time Pt states that he loses his focus frequently while at work and is easily distracted Pt also feels lack of motivation also His father states that he is great at what he does if he can focus better Pt denies any other complaints Instructions Date Instruction Additional Infor bobby No Information Assessments Type Assessment Date assessment Attention deficit Mental Status Date Cognitive Assessment Orientation - New [place] ed to time, place, person, situation.
--- OUTSIDE RECORDS SUMMARY | 2025-05-14 07:39 | XMS_ITS | Continuity of Care Document ---
Author Organization [facility] Address [address] [place] [address] [place] [address] Phone Care Team Providers Care Engagement Quality Consultant Name Role Phone Arsen Calderon MD Unavailable [...] Providers Copied on Encounter OFFICE/OUTPA TIENT VISIT, [facility], [address], [place], [place], [address], [place] tel:[phone] [facility] ADD (chief complaint) Attention deficit 5 Kvng Leger. [address], [place], [place], [address] , [place]. tel:[phone] OFFICE/OUTPA TIENT VISIT, [facility], [address], [place], [place], [address], [place] tel:[phone] [facility] ADD (chief complaint) Attention deficit 5 Kvng Leger. [address], [place], [place], [address] , [place]. tel:[phone] OFFICE/OUTPA TIENT VISIT, [facility], [address], [place], [place], [address], [place] tel:[phone] [facility] ADD (chief complaint) allergy1 (chief complaint) Attention deficitAllergic rhinitis due to pollen 5 Kvng Leger. [address], [place], [place], [address] , [place]. tel:[phone] OFFICE/OUTPA TIENT VISIT, [facility], [address], [place], [place], [address], [place] tel:[phone] [facility] ADD (chief complaint) Attention deficit 5 Kvng Arsen. [address], [place], [place], [address] , [place]. tel:[phone] OFFICE/OUTPA TIENT VISIT, [facility], [address], [place], [place], [address], [place] tel:[phone] [facility] ADD (chief complaint) Attention deficit 5 Calderon Arsen. [address], [place], [place], [address] , [place]. tel:[phone] OFFICE/OUTPA TIENT VISIT, EST [facility], [address], [place], [place], [address], [place] tel:[phone] [facility] ADD (chief complaint) Attention deficit Sep- 4 Calderon Arsen. [address], [place], [place], [address] , [place]. tel:[phone] PREV VISIT, EST, AGE 18-39 [facility], [address], [place], [place], [address], [place] tel:[phone] [facility] physical (chief complaint) Encntr for general adult medical exam w/o abnormal findings 4 Calderon Arsen. [address], [place], [place], [address] , [place]. tel: [phone] OFFICE/OUTPA TIENT VISIT, EST [facility], [address], [place], [place], [address], [place] tel:[phone] [facility] ADD (chief complaint) sinus allergy1 (chief complaint) Allergic rhinitis due to pollenAttention deficit 4 Kvng Arsen. [address], [place], [place], [address] , [place]. tel:[phone] OFFICE/OUTPA TIENT VISIT, [facility], [address], [place], [place], [address], [place] tel:[phone] [facility] allergy1 (chief complaint) ADD (chief complaint) Allergic rhinitis due to pollenAttention deficit 4 Calderon Arsen. [address], [place], [place], [address] , [place]. tel:[phone] OFFICE/OUTPA TIENT VISIT, [facility], [address], [place], [place], [address], [place] tel:[phone] [facility] ADD (chief complaint) Attention deficit 4 Kvng Leger. [address], [place], [place], [address] , [place]. tel:[phone] OFFICE/OUTPA TIENT VISIT, EST [facility], [address], [place], [place], [address], [place] tel:[phone] [facility] ADD (chief complaint) GI (chief complaint) protein1 (chief complaint) Attention deficitGastroenteri tisAbnormality of plasma protein, unspecifiedOther disorders of phosphorus metabolism 4 Kvng Leger. [address], [place], [place], [address] , [place]. tel:[phone] OFFICE/OUTPA TIENT VISIT, [facility], [address], [place], [place], [address], [place] tel:[phone] [facility] ADD (chief complaint) Attention deficit 0 3 Kvng Leger. [address], [place], [place], [address] , [place]. tel:[phone] PREV VISIT, EST, AGE 18-39 [facility], [address], [place], [place], [address], [place] tel:[phone] [facility] physical (chief complaint) Encounter for general adult medical examination without abnormal findings 3 Kvng Leger. [address], [place], [place], [address] , [place]. tel: [phone] OFFICE/OUTPA TIENT VISIT, [facility], [address], [place], [place], [address], [place] tel:[phone] [facility] ADD (chief complaint) Attention deficit 3 Kvng Moore [address], [place], [address] , [place]. tel:[phone] OFFICE/OUTPA TIENT VISIT, [facility], [address], [place], [place], [address], [place] tel:[phone] [facility] ADD (chief complaint) Attention deficit Reg-0 - 3 Calderon Arsen. [address], [place], [place], [address] , [place]. tel: [phone] OFFICE/OUTPA TIENT VISIT, [facility], [address], [place], [place], [address], [place] tel:[phone] [facility] ADD (chief complaint) Attention deficit February-0 3 Calderon Arsen. [address], [place], [place], [address] , [place]. tel: [phone] OFFICE/OUTPA TIENT VISIT, [facility], [address], [place], [place], [address], [place] tel:[phone] [facility] ADD (chief complaint) weight gain1 (chief complaint) Attention deficitAbnormal weight gain Sep-2 2 Calderon Arsen. [address], [place], [place], [address] , [place]. tel: [phone] OFFICE/OUTPA TIENT VISIT, [facility], [address], [place], [place], [address], [place] tel:[phone] [facility] ADD (chief complaint) Attention deficit Jl- 2 Calderon Arsen. [address], [place], [place], [address] , [place]. tel: [phone] OFFICE/OUTPA TIENT VISIT, [facility], [address], [place], [place], [address], [place] tel:[phone] [facility] ADD (chief complaint) Attention deficit Sep- 1 Kvng Arsen. [address], [place], [place], [address] , [place]. tel: [phone] PREV VISIT, EST, AGE 18-39 [facility], [address], [place], [place], [address], [place] tel:[phone] [facility] physical (chief complaint) Encounter for general adult medical examination without abnormal findings 1 Kvng Moore [address], [place], [place], [address] , [place]. tel:[phone] OFFICE/OUTPA TIENT VISIT, [facility], [address], [place], [place], [address], [place] tel:[phone] [facility] ADD (chief complaint) Attention deficit Nov-0 1 Kvng Moore [address], [place], [place], [address] , [place]. tel:[phone] OFFICE/OUTPA TIENT VISIT, [facility], [address], [place], [place], [address], [place] tel:[phone] [facility] ADD (chief complaint) Attention deficit Jul- 0 Kvng [address], [place], [place], [address] , [place]. tel:[phone] OFFICE/OUTPA TIENT VISIT, [facility], [address], [place], [place], [address], [place] tel:[phone] [facility] ADD1 (chief complaint) phosphorus 1 (chief complaint) Other disorders of phosphorus metabolismAttention deficit Apr- 0 Kvng [address], [place], [place], [address] , [place]. tel:[phone] OFFICE/OUTPA TIENT VISIT, [facility], [address], [place], [place], [address], [place] tel:[phone] [facility] ADD (chief complaint) phos (chief complaint) Other disorders of phosphorus metabolismAttention deficit 0 Kvng Moore [address], [place], [place], [address] , [place]. tel:[phone] Referring Provider: Kristy Stack [address], [place], [place], [address]. tel:[phone] OFFICE/OUTPA TIENT VISIT, EST [facility], [address], [place], [place], [address], tel:[phone] [facility] ADD (chief complaint) phosphorus (chief complaint) Other disorders of phosphorus metabolismAttention deficit 0 Kvng Leger. [address], [place], [place], [address] , [place]. tel:[phone] Referring [facility]: [facility] [place], [address]. tel:[phone] PREV VISIT, NEW, AGE 18-39 [facility], [address], [place], [place], [address], [place] tel:[phone] [facility] physical (chief complaint) Encntr for general adult medical exam w/o abnormal findings 0 Kvng Leger. [address], [place], [place], [address] , [place]. tel:[phone] Referring Provider: Kristy Stack [address] [facility] [address], [place], [place], [address]. tel:[phone] Family History Family Member Type Diagnosis Age At Onset Father Problem (finding) ADD/ADHD Father Problem (finding) Depression Brother Problem (finding) Alive and well Mother Problem (finding) Alive and well Payers Payer name Insurance type Covered republican ID Óscar banks(s) [facility] CI [id number] Social History Type Description Quantity Date Captured [...] ordered Referral Referred To: Obdulio Camp [address] [place], [place], [id number] Ordered: Referrals: Allopathic & Osteopathic Physicians : [...] not like flonase Pt wants zyrtec refilled allergy1 Pt has seasonal allergy with sneezing [...] diarrhea Pt denies any blood in stool protein1 Pt had lab done while donating [...] bone pain Pt denies any urinary symptoms. physical Pt needs annual physical. Pt has [...] Mental Status Date Cognitive Assessment Orientation - [place] ed to time, place, person, situation.
[2025-05-14 08:00] LABS: Hematocrit 41.5 % (42.0-52.0); Hemoglobin 13.8 g/dL (14.0-18.0); Immature Granulocyte Percent A 0.3 % (0-0.5); Lymphocytes Absolute Auto 2.75 K/mm3 (0.9-3.2); Mean Corpuscular HGB Conc 33.3 g/dl (32-36); Mean Corpuscular Hemoglobin 28.8 pg (26-34); Mean Corpuscular Volume 86.6 fl (80-100); Nucleated Red Blood Cells Absolute Auto 0.000 K/mm3 (0.0-0.012); Nucleated Red Blood Cells Perc 0.0 % (0.0-0.2); Platelet Count Result 319 k/mm3 (150-375); Red Blood Count 4.79 M/mm3 (4.6-6.20); White Blood Count 7.6 K/mm3 (4.5-10.0)
[2025-05-14 08:01] LABS: Add Urine Microscopic? NO; Appearance Urine Clear (Clear); Glucose Urine UA Negative (Negative); Leukocyte Esterase Ur Negative LEU/UL (Negative); Nitrate Urine Negative (Negative); Specific Grav Ur 1.024 (1.001-1.035)
[2025-05-14 08:24] LABS: Alanine Aminotransferase 26 U/L (6-50); Albumin Level 4.5 g/dL (3.5-5.1); Alkaline Phosphatase 68 U/L (38-126); Anion Gap 8 mmol/L (4-12); Aspartate Amino Transferase 30 U/L (17-59); Bilirubin,Total 0.4 mg/dL (0.2-1.3); Blood Urea Nitrogen 13 mg/dL (9-20); Calcium 9.4 mg/dL (8.4-10.2); Carbon Dioxide 27 mmol/L (22-30); Chloride 104 mmol/L (98-107); Estimated CRCL calculation 140 ml/min; Estimated Glomerular Filt Rate > 60; Glucose 98 mg/dL (65-110); Lipase 48 U/L (23-300); Potassium 4.2 mmol/L (3.4-5.0); Sodium 139 mmol/L (137-145); Total Protein 7.4 g/dL (6.3-8.2)
--- NOTE | 2025-05-14 09:34 | ED_ITS ---
HPI - Abdominal Pain General Chief Complaint: Abdominal Pain Stated Complaint: LUQ pain and tenderness Time Seen by Provider: 05/14/25 07:32 Source: patient Mode of arrival: ambulatory Limitations: no limitations History of Present Illness HPI narrative: 24-year-old with a history of ADHD here with a complains of left upper abdominal pain with started 3 days ago. He denies any nausea, vomiting or diarrhea. States that he had colitis a year ago. 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 MD elicited complaint: abdominal pain Pertinent past history: none Onset (ago): day(s) (3) Pain Consistency: intermittent Location: LUQ Severity: mild Quality: aching Radiation: none Migration to: no migration Exacerbating factors: movement Relieving factors: nothing Related Data Home Medications ?Medication ?Instructions ?Recorded ?Confirmed ?Last Taken ?Type dextroamphetamine-amphetamine 20 20 mg PO DAILY 08/05/24 05/14/25 05/12/25 History mg tablet Allergies Allergy/AdvReac Type Severity Reaction Status Date / Time No Known Allergies Allergy Verified 05/14/25 07:41 Review of Systems 2 Review of Systems: All systems reviewed & are unremarkable except as noted in HPI and below Constitutional: Constitutional: Reports no additional constitutional complaints Eyes: Eyes: Reports no additional eye complaints ENT: Reports system reviewed and no additional complaints, except as documented Cardiovascular: Cardiovascular: Reports no additional cardiovascular complaints Respiratory: Respiratory: Reports no additional respiratory complaints Gastrointestinal: Gastrointestinal: Reports as per HPI Musculoskeletal: Musculoskeletal: Reports no additional musculoskeletal complaints Integumentary/Breasts: Skin/Breast: Reports system reviewed and no additional complaints, except as docu PMFSH Past Medical History Medical History ADHD (attention deficit hyperactivity disorder) Abnormal CT scan, colon Colitis Healthy male adult Surgical History Surgical History No pertinent past surgical history Family History Family History Mother Family history non-contributory Social History Social History Smoking status: Never smoker Alcohol intake: current Alcohol use details: Socially Substance use: current Substance use type: marijuana Other substance usage details: Smokes/uses edibles occasionally Living arrangements: alone Gender identity (if verbalized by the patient): Male Spiritual care concerns: No Exam 2 Narrative: GENERAL: Well-appearing, well-nourished, and in no acute distress. HEAD: Normocephalic, atraumatic. EYES: PERRLA and EOMI. ENT: Nares clear, no rhinorrhea or epistaxis. Mucous membranes moist. NECK: Supple. CHEST: Clear to auscultation. No respiratory distress. HEART: Regular rate and rhythm. No murmur heard. Normal peripheral pulses. ABDOMEN: Soft, nontender, nondistended, normal active bowel sounds. EXTREMITIES: Normal range of motion. No edema. SKIN: Warm, dry, no rash. NEURO: No focal deficits. Alert and oriented x3. PSYCH: Normal mood and affect. Course Course Emergency Course: Notified patient about his lab work, CT findings. Recommended him to follow up with the GI as the CT showed possible Crohn's and he has no history of Crohn's disease. And has no symptoms. Vital Signs Vital signs: Vital Signs Temperature 37.0 C 05/14/25 07:19 Pulse Rate 92 05/14/25 07:19 Respiratory Rate 15 05/14/25 07:19 Blood Pressure 130/73 05/14/25 07:19 Pulse Oximetry 99 05/14/25 07:19 Oxygen Delivery Room Air 05/14/25 07:19 Temperature 37.0 C 05/14/25 07:19 Pulse Rate 79 05/14/25 09:05 Respiratory Rate 18 05/14/25 09:05 Blood Pressure 115/66 05/14/25 09:05 Pulse Oximetry 99 05/14/25 09:05 Oxygen Delivery Room Air 05/14/25 07:19 MDM - Abdominal Pain Differential Diagnosis Differential diagnosis: Likely abdominal pain, diverticulitis and small bowel obstruction Medical Records Attestation: I reviewed the patient's medical records. Lab Data Attestation: I reviewed the patient's lab results. 05/14/25 07:52 05/14/25 07:52 Labs: Lab Results 05/14/25 Range/Units 07:52 WBC 7.6 (4.5-10.0) K/mm3 RBC 4.79 (4.6-6.20) M/mm3 Hgb 13.8 L (14.0-18.0) g/dL Hct 41.5 L (42.0-52.0) % MCV 86.6 (80-100) fl MCH 28.8 (26-34) pg MCHC 33.3 (32-36) g/dl RDW 12.4 (11.5-14.5) % Plt Count 319 (150-375) k/mm3 MPV 8.7 (7.4-10.4) fl Immature Gran % (Auto) 0.3 (0-0.5) % Neut % (Auto) 55.0 (45.5-73.1) % Lymph % (Auto) 36.2 (18.3-44.2) % [place] % (Auto) 6.1 (2.6-8.5) % Eos % (Auto) 2.0 (0-4.4) % Baso % (Auto) 0.4 (0.2-1.2) % Lymph # (Auto) 2.75 (0.9-3.2) K/mm3 [place] # (Auto) 0.5 (0.1-0.6) K/mm3 Eos # (Auto) 0.2 (0-0.3) K/mm3 Baso # (Auto) 0.0 (0.0-0.1) K/mm3 Abs Immat Gran (auto) 0.02 (0.00-0.031) K/mm3 Absolute Neuts (auto) 4.2 (1.3-6.7) K/mm3 Absolute Nucleated RBC 0.000 (0.0-0.012) K/mm3 Nucleated RBC % 0.0 (0.0-0.2) % Sodium 139 (137-145) mmol/L Potassium 4.2 (3.4-5.0) mmol/L Chloride 104 (98-107) mmol/L Carbon Dioxide 27 (22-30) mmol/L Anion Gap 8 (4-12) mmol/L BUN 13 (9-20) mg/dL Creatinine 0.77 (0.7-1.3) mg/dL Estim Creat Clear Calc 140 ml/min Estimated GFR > 60 (59 - ) Glucose 98 (65-110) mg/dL Calcium 9.4 (8.4-10.2) mg/dL Total Bilirubin 0.4 (0.2-1.3) mg/dL AST 30 (17-59) U/L ALT 26 (6-50) U/L Alkaline Phosphatase 68 (38-126) U/L Total Protein 7.4 (6.3-8.2) g/dL Albumin 4.5 (3.5-5.1) g/dL Lipase 48 (23-300) U/L Urine Color Yellow (Yellow) Urine Appearance Clear (Clear) Urine pH 8.0 (5.0-9.0) Ur Specific [place] 1.024 (1.001-1.035) Urine Protein Negative (Negative) mg/dL Urine Glucose (UA) Negative (Negative) mg/dL Urine Ketones Negative (Negative) mg/dL Ur Blood (Man) Negative (Negative) Urine Nitrate Negative (Negative) Urine Bilirubin Negative (Negative) Urine Urobilinogen 1.0 (<2.0) mg/dL Leukocyte Esterase Rfl Negative (Negative) JACKELINE/UL Imaging Data Radiologist's impression: ITS Impressions Abdomen/Pelvis CT 05/14/25 08:49 IMPRESSION: 1. Mild fatty infiltration of the wall of the terminal ileum raising suspicion for chronic sequela of Crohn's disease with stable appearance of mild likely chronic reactive ileocolic lymphadenopathy. No acute intra-abdominal/pelvic process. Discharge Plan Discharge Clinical Impression: Abdominal pain, LUQ Patient Disposition: Home Condition: Stable Instructions: Abdominal Pain (ED) Patient Language: Albanian Prescriptions: New dicyclomine 20 mg tablet 20 mg PO QID PRN (Reason: Abdominal Pain) Qty: 20 0RF No Action dextroamphetamine-amphetamine 20 mg tablet 20 mg PO DAILY Follow-up/Referrals: Arsen Calderon MD [Primary Care Provider] - Time of Disposition: 09:41
== END 2025-05-14 10:03 | disposition home or self-care (01) ==
PROVIDERS: Emergency Provider Family Medicine; PCP Emergency Medicine
DX: R10.12 Left upper quadrant pain (principal); F90.9 Attention-deficit hyperactivity disorder, unspecified type
CPT/HCPCS: 36415; 74177; 80053; 81003; 83690; 85025; 99284; Q9967